=== PATIENT | female | born 1960 | race Caucasian/White ===

== ENCOUNTER 2021-02-03 11:20 | Emergency (ER) | payer OTHER ==
[~2021-02-03] VITALS: Ht 154.9 cm; Wt 49.9 kg
== END 2021-02-03 14:00 | disposition home or self-care (01) ==
LOC: ER1 11:20
DX: U07.1 COVID-19 (principal); Z23 Encounter for immunization; J44.9 Chronic obstructive pulmonary disease, unspecified; F17.210 Nicotine dependence, cigarettes, uncomplicated; Z90.49 Acquired absence of other specified parts of digestive tract; Z88.5 Allergy status to narcotic agent; Z88.6 Allergy status to analgesic agent
CPT/HCPCS: 99283; M0243